=== PATIENT | female | born 2000 | race Caucasian/White ===

== ENCOUNTER 2025-04-30 13:28 | Emergency (ER) | payer MEDICAID ==
[~2025-04-30] VITALS: Ht 177.8 cm; Wt 194.7 kg
[2025-04-30 13:37] VITALS: TEMP 98.1
--- NOTE | 2025-04-30 14:47 | Physician Documentation ---
History of Present Illness ~ Chief Complaint: Bite-animal Stated Complaint: CAT BITE Time Seen by MD: 13:47 Primary Medical Doctor: NONE HPI This is a 24-year-old female who presents with a cat bite to her left 2nd finger and right thumb along with scratches to both hands after breaking up a fight between a cat and her dogs, patient reports that the cat is a stray. Patient reports decreased sensation to the tip of left 2nd finger after bandaging the finger. Reports that this happened just prior to arrival. Patient reports she wash the wounds thoroughly before presenting to the emergency department. Patient reports unknown last tetanus shot. Tetanus within 5 years?: No Medication Reconciliation Allergies: Coded Allergies: No Known Allergies (Unverified , 04/30/25) Scheduled Amox Tr/Potassium Clavulanate 875/125 MG (Augmentin 875/125 MG), 1 TAB PO Q12H Past Medical History Past Medical History: No Pertinent History Review of Systems ROS Cat bites to hands as stated above in the HPI, otherwise all systems are reviewed and negative. Physical Exam Vital Signs: Temperature: 98.1, Source: Oral, Heart Rate: 104, Respiratory Rate: 16, BP: 165/101, Pulse Oximetry: 98, Weight: 194.700 Oxygen Flow Rate: 0 Physical Exam VITALS: Reviewed and as above. GENERAL: Alert, nontoxic appearing, no apparent distress. RESPIRATORY: No increased work of breathing, no respiratory distress, speaking in full clear sentences SKIN: Scratches to bilateral posterior hands, wounds to extensor and flexor surface of left 1st finger, wound to lateral aspect of right thumb Progress Results/Orders Results/Orders Vital Signs 04/30/25 04/30/25 04/30/25 13:37 15:27 15:49 Temp 98.1 Pulse 104 89 Resp 16 16 16 B/P (MAP) 165/101 154/65 Pulse Ox 98 98 O2 Flow Rate 0 Medical Decision Making Findings This 24-year-old female presented with cat bites and scratches to her hands, the injuries occurred just prior to arrival and do not appear to be infected, patient reported washing the wounds thoroughly before arrival. Nursing staff spoke to animal control who reports no rabies case in cat's locally therefore rabies prophylaxis not indicated, patient provided Tdap booster. Patient placed on course of antibiotics and nursing staff provided further cleaning irrigation of wounds. Patient is otherwise well-appearing and there appears to be no tendon or significant neurovascular injury, patient did report a very small area of decreased sensation to her left middle fingertip that may represent nerve injury from cat bite though as she described it as starting after placing a bandage it may represent injury from patient bandaging the finger, though this bandage was removed. Patient is appropriate for outpatient follow up and provided instructions to follow up in two days for wound recheck either here or with primary care. Patient provided careful return to care precautions. Patient verbalized understanding of return to care and follow up instructions. Differential Dx:Considerations: Include: Abrasion, Anaphylaxis, Cellulitis, Hematoma, Laceration, Neurovascular injury, Punture wound, Retained foreign body, Other (Flexor tenosynovitis) Departure Disposition: 01 HOME / SELF CARE / HOMELESS Impression: Primary Impression: Cat bite Qualified Codes: W55.01XA - Bitten by cat, initial encounter Condition: Improved Discharge Instructions: Animal Bite, Adult Additional Instructions: Keep the area clean dry and covered, please take the antibiotics as prescribed, follow up with your primary care provider in two days for wound recheck or return to the emergency department if you are unable to follow up with your primary care provider in that time. You may use ibuprofen and or Tylenol as directed by [id number] packaging for pain. Please return to the emergency department for any new or worsening concerning symptoms. Referrals: NO PRIMARY CARE PROVIDER (PCP) Prescriptions Amox Tr/Potassium Clavulanate 875/125 MG (Augmentin 875/125 MG) 875 Mg-125 Mg Tablet 1 TAB PO Q12H for 7 Days, #14 TAB Prov: VAHID HELTON NP 05/01/25 Education Educated: Patient Educated regarding: diagnosis, treatment, prognosis, need for follow up Signature Scribe Signature: No scribe Attestation: The note accurately reflects work and decisions made by me.MONALISA Jordan 04/30/25 22:21 MARY BLACKWELL Apr 30, 2025 14:46 VAHID HELTON NP May 01, 2025 16:10
[2025-04-30] MEDS ORDERED: AMOX-580 PO (14:51)
[2025-04-30] MEDS: amox tr/potassium clavulanate 875/125mg TAB PO ONE (15:23)
[2025-04-30] MEDS: TETanus/Pertussis (Acell)/Diphther VAC/PF (Tdap-Adult) 0.5ml syringe IMVAC ONE (15:23)
[2025-04-30] MEDS: ketorolac trometh 15mg/ml vial 15 MG/ML ML IM ONE (15:27)
[2025-04-30 15:49] VITALS: BP 154/65; PULSE 89; RESP 16; O2SAT 98
[2025-05-01] MEDS ORDERED: AMOX-580 PO (16:10)
== END 2025-04-30 16:02 | disposition home or self-care (01) ==
LOC: ER 13:29
DX: S61.251A Open bite of left index finger without damage to nail, initial encounter (principal); S61.051A Open bite of right thumb without damage to nail, initial encounter; W55.01XA Bitten by cat, initial encounter; Y93.89 Activity, other specified; Y92.89 Other specified places as the place of occurrence of the external cause; Y99.8 Other external cause status
CPT/HCPCS: 90471; 90715; 96372; 99284; J1885